=== PATIENT | male | born 1970 | race Caucasian/White ===

== ENCOUNTER 2017-05-01 18:24 | Emergency (ER) | payer OTHER ==
[2017-05-01 18:32] VITALS: TEMP 97.7; O2SAT 96
--- NOTE | 2017-05-01 18:35 | EDPHY ---
H & P Stated Complaint: dizziness, numbness, light sensitivity-multiple complaints-1 month ago HPI/ROS: HPI CHIEF COMPLAINT: Multiple complaints HISTORY OF PRESENT ILLNESS: Patient is a 47-year-old male otherwise healthy denies taking any daily medications he presents emergency room multiple complaints. Patient reports to me for the past 2 years he has had a burning sensation in his tongue. Additionally for the past year he states he has had intermittent vertigo or dizziness. And additionally tells me the past year he has had ringing in his ears. Has seen ENT and was told he has tinnitus. He now presents emergency room because he states for the past few days the dizziness is somewhat gotten worse. He states that is better now. The room is not spinning. He states when he moves his head aggressively can sometimes get dizzy. Has ringing in his ears that is chronic. Additionally he reports that over the past few days he has noticed some numbness and tingling in his chest. He does not go throughout his abdomen but it is diffuse. He denies any focal weakness. He denies chest pain. Denies fever. Denies shortness of breath or nausea or diarrhea. Past Medical History: Denies medical history except for chronic vertigo and tenderness. Past Surgical History: Denies surgical history Social History: Denies daily use of drugs alcohol tobacco products. Family History: Noncontributory. ROS REVIEW OF SYSTEMS: A comprehensive 10 point review of systems is otherwise negative aside from elements mentioned in the history of present illness. Exam Constitutional appears well nontoxic, triage nursing summary reviewed, vital signs reviewed, awake/alert. Eyes normal conjunctivae and sclera, EOMI, PERRLA. HENT normal inspection, atraumatic, moist mucus membranes, no epistaxis, neck supple/ no meningismus, no raccoon eyes. Respiratory clear to auscultation bilaterally, normal breath sounds, no respiratory distress, no wheezing. Cardiovascular rate normal, regular rhythm, no murmur, no edema, distal pulses normal. Gastrointestinal soft, non-tender, no rebound, no guarding, normal bowel sounds, no distension, no pulsatile mass. Genitourinary no CVA tenderness. Musculoskeletal no midline vertebral tenderness, full range of motion, no calf swelling, no tenderness of extremities, no meningismus, good pulses, neurovascularly intact. Skin pink, warm, & dry, no rash, skin atraumatic. Neurologic normal neurological exam. awake, alert and oriented x 3, AAOx3, moves all 4 extremities equally, motor intact, sensory intact, CN II-XII intact , normal cerebellar, normal vision, normal speech. Psychiatric normal mood/affect. Heme/Lymph/Immune no lymphadenopathy. Differential Diagnosis: Includes but is not limited to in a particular order vertigo, benign positional vertigo, posterior circulation stroke, cerebellar infarct, MS, anxiety, electrolyte disturbance, acute anxiety, panic attack Medical Decision Making: Plan for this patient MRI brain without contrast rule out posterior circulation stroke cerebellar stroke, EKG, troponin, basic electrolytes. Gentle IV hydration. He has declined any "pharmaceutical medications " Re-evaluation: Of note here in the emergency room this patient has a completely normal neurological exam. There is no nystagmus. Normal gait. Normal cranial nerves. Normal [id number]. EKG interpretation by me on record in [employer] system. Impression time of EKG 1853, sinus arrhythmia heart rate 51. Sinus arrhythmia noted. However no acute ischemic changes. 2307: I did re-evaluate the patient is resting comfortably no acute distress. He denies room spinning sensation. Denies chest pain or shortness of breath. I did go over in extensive detail for about 30 minutes about this patient's MRI results. He understands he should follow up with 1 his primary care doctor in to ENT. I gave him his MRI report. His blood work is unremarkable. He understands to follow up his primary care doctor and ENT. Return emergency room if worsening symptoms. I do not have a great cause of his dizziness. And lightheadedness. His vital signs have been stable blood work is unremarkable MRI shows no stroke bleed or tumor. 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 He understands have follow-up for this. Follow up with his primary care doctor and ENT. Return precautions given. He understands. Source: Patient - Personal History Current Tetanus/Diphtheria Vaccine: Unsure Current Tetanus Diphtheria and Acellular Pertussis (TDAP): Unsure Tetanus Vaccine Date: WITHIN 10 YRS - Medical/Surgical History Hx Asthma: No Hx Chronic Respiratory Disease: No Hx Diabetes: No Hx Cardiac Disease: No Hx Renal Disease: No Hx Cirrhosis: No Hx Alcoholism: No Hx HIV/AIDS: No Hx Splenectomy or Spleen Trauma: No Other PMH: RIGHT LEG ORTHO SURG - Social History Smoking Status: Never smoked Constitutional: Initial Vital Signs Temperature (C) 36.5 C 05/01/17 18:29 Heart Rate 66 05/01/17 18:29 Respiratory Rate 18 05/01/17 18:29 Blood Pressure 126/77 H 05/01/17 18:29 O2 Sat (%) 96 05/01/17 18:29 O2 Delivery Mode Room Air Allergies/Adverse Reactions: No Known Allergies Allergy (Verified 05/01/17 18:29) Home Medications: Medication Instructions Recorded NK [No Known Home Meds] 01/14/16 Medical Decision Making - Diagnostics Imaging Results: Imaging Impressions Brain MRI 05/01/17 18:48 Impression: Asymmetrical abnormal process in the left petrous apex region. Recommend thin section, multi planar, MRI without and with contrast through this area coupled with a noncontrast thin section CT through the skull base to best evaluate the cranial nerve foramina in this region. Differential diagnosis includes petrous apicitis, schwannoma, chordoma and chondrosarcoma. Results called and discussed with Sen Wyman MD, at 22:35 - Data Points Laboratory Results: Laboratory Results 05/01/17 18:55 05/01/17 18:55 05/01/17 05/01/17 18:55 18:55 WBC 6.26 10^3/uL 10^3/uL (3.80-9.50) RBC 4.97 10^6/uL 10^6/uL (4.40-6.38) Hgb 16.1 g/dL g/dL (13.7-17.5) Hct 45.0 % % (40.0-51.0) MCV 90.5 fL fL (81.5-99.8) MCH 32.4 pg pg (27.9-34.1) MCHC 35.8 g/dL g/dL (32.4-36.7) RDW 11.9 % % (11.5-15.2) Plt Count 213 10^3/uL 10^3/uL (150-400) MPV 10.4 fL fL (8.7-11.7) Neut % (Auto) 47.1 % % (39.3-74.2) Lymph % (Auto) 41.5 % % (15.0-45.0) [place] % (Auto) 7.2 % % (4.5-13.0) Eos % (Auto) 2.9 % % (0.6-7.6) Baso % (Auto) 1.1 % % (0.3-1.7) Nucleat RBC Rel Count 0.0 % % (0.0-0.2) Absolute Neuts (auto) 2.95 10^3/uL 10^3/uL (1.70-6.50) Absolute Lymphs (auto) 2.60 10^3/uL 10^3/uL (1.00-3.00) Absolute Monos (auto) 0.45 10^3/uL 10^3/uL (0.30-0.80) Absolute Eos (auto) 0.18 10^3/uL 10^3/uL (0.03-0.40) Absolute Basos (auto) 0.07 10^3/uL 10^3/uL (0.02-0.10) Absolute Nucleated RBC 0.00 10^3/uL 10^3/uL (0-0.01) Immature Gran % 0.2 % % (0.0-1.1) Immature Gran # 0.01 10^3/uL 10^3/uL (0.00-0.10) Sodium 142 mEq/L mEq/L (134-144) Potassium 4.1 mEq/L mEq/L (3.5-5.2) Chloride 101 mEq/L mEq/L (97-110) Carbon Dioxide 29 mEq/l mEq/l (22-31) Anion Gap 12 mEq/L mEq/L (8-16) BUN 12 mg/dL mg/dL (7-23) Creatinine 0.9 mg/dL mg/dL (0.7-1.3) Estimated GFR > 60 Glucose 73 mg/dL mg/dL (70-100) Calcium 9.5 mg/dL mg/dL (8.5-10.4) Total Bilirubin 0.6 mg/dL mg/dL (0.1-1.4) Conjugated Bilirubin 0.1 mg/dL mg/dL (0.0-0.5) Unconjugated Bilirubin 0.5 mg/dL mg/dL (0.0-1.1) AST 19 IU/L IU/L (17-59) ALT 28 IU/L IU/L (21-72) Alkaline Phosphatase 77 IU/L IU/L (38-126) Troponin I < 0.012 ng/mL ng/mL (0.000-0.034) Total Protein 7.6 g/dL g/dL (6.3-8.2) Albumin 3.9 g/dL g/dL (3.5-5.0) TSH 3.370 uIU/mL uIU/mL (0.465-4.680) Medications Given: Discontinued Medications Sodium Chloride (Ns) 1,000 mls @ 0 mls/hr IV EDNOW ONE; Wide Open PRN Reason: Protocol Stop: 05/01/17 18:48 Last Admin: 05/01/17 19:05 Dose: 1,000 mls Departure - Departure Disposition: Home, Routine, Self-Care Clinical Impression: Dizziness Condition: Good Instructions: Lightheadedness (ED), Dizziness (ED) Additional Instructions: 1. Please follow up with your primary care doctor as well as ENT. 2. Return to the emergency room if he develops worsening symptoms questions or concerns. 3. Follow-up about your MRI results. Referrals: Stefany Hoover MD [Primary Care Provider] - As per Instructions Tania Vegas MD [Medical Doctor] - As per Instructions
[2017-05-01] MEDS ORDERED: NS 1,000 ML IV ONE (18:47)
--- NOTE | 2017-05-01 18:55 | CPEKG ---
Heart Rate: 51 RR Interval: 1176 P-R Interval: 176 QRSD Interval: 104 QT Interval: 396 QTC Interval: 365 P [place]: 76 QRS [place]: 45 T Wave [place]: 19 EKG Severity - OTHERWISE NORMAL ECG - EKG Impression: SINUS ARRHYTHMIA, RATE 39-59 Electronically Signed By: Sen Wyman 02-May-2017 03:00:34
--- NOTE | 2017-05-01 18:55 | CPEKG ---
Heart Rate: 51 RR Interval: 1176 P-R Interval: 176 QRSD Interval: 104 QT Interval: 396 QTC Interval: 365 P [place]: 76 QRS [place]: 45 T Wave [place]: 19 EKG Severity - OTHERWISE NORMAL ECG - EKG Impression: SINUS ARRHYTHMIA, RATE 39-59 Electronically Signed By: Sen Wyman 02-May-2017 03:00:34
[2017-05-01 19:02] LABS: PLATELET COUNT 213 10^3/uL (150-400)
[2017-05-01 23:21] VITALS: BP 114/78; PULSE 61; RESP 16
== END 2017-05-01 23:23 | disposition home or self-care (01) ==
DX: R42 Dizziness and giddiness (principal); E86.9 Volume depletion, unspecified

== ENCOUNTER → 2017-05-06 | Outpatient (CLI) | payer OTHER | LOC: FIMAGING 08:30 | PROVIDERS: ATTEND Podiatrist Foot & Ankle Surgery | DX: M77.52 Other enthesopathy of left foot and ankle (principal) ==

== ENCOUNTER → 2017-05-25 | Outpatient (CLI) | payer OTHER | LOC: BMCIMAGING 10:57 | PROVIDERS: ATTEND Orthopaedic Surgery | DX: Z13.89 Encounter for screening for other disorder (principal) ==

== ENCOUNTER → 2017-06-17 | Outpatient (CLI) | payer OTHER | LOC: CIMAGING 13:27 | PROVIDERS: ATTEND Neurological Surgery | DX: G93.9 Disorder of brain, unspecified (principal) ==

== ENCOUNTER → 2017-06-24 | Outpatient (CLI) | payer OTHER | LOC: FIMAGING 15:24 | DX: M51.34 Other intervertebral disc degeneration, thoracic region (principal) ==

== ENCOUNTER → 2017-11-22 | Outpatient (CLI) | payer OTHER | LOC: FIMAGING 18:54 | PROVIDERS: ATTEND Podiatrist Foot & Ankle Surgery | DX: M71.572 Other bursitis, not elsewhere classified, left ankle and foot (principal) ==

== ENCOUNTER → 2018-03-11 | Outpatient (CLI) | payer OTHER | LOC: FIMAGING 13:22 | PROVIDERS: ATTEND Podiatrist Foot & Ankle Surgery | DX: M79.672 Pain in left foot (principal) ==